=== PATIENT | female | born 1960 | race African-American/Black ===

== ENCOUNTER 2016-12-16 11:18 | Day surgery (SDC) | payer MEDICAID ==
[~2016-12-16] VITALS: Ht 154.9 cm; Wt 127.0 kg
== END 2016-12-16 14:45 | disposition home or self-care (01) ==
LOC: RAD.S 11:18 → EDSTATUS 13:00 → SSS 13:00 → RAD.S 14:45
DX: M51.17 Intervertebral disc disorders with radiculopathy, lumbosacral region (principal); M99.83 Other biomechanical lesions of lumbar region; F17.200 Nicotine dependence, unspecified, uncomplicated; Z79.899 Other long term (current) drug therapy; Z79.891 Long term (current) use of opiate analgesic